=== PATIENT | male | born 1960 | race Two or more races ===

== ENCOUNTER 2019-07-29 22:06 | Emergency (ER) | payer MEDICAID ==
[~2019-07-29] VITALS: Ht 172.7 cm; Wt 72.6 kg
[2019-07-30] MEDS ORDERED: NAPROXEN 500 MG TAB PO ONE (00:15)
[2019-07-30] MEDS ORDERED: HYDROcodone-ACET 5/325MG TAB PO ONE (00:15)
[2019-07-30 00:56] VITALS: BP 143/98
== END 2019-07-30 02:57 | disposition home or self-care (01) ==
LOC: ER 22:07
DX: M13.842 Other specified arthritis, left hand (principal); M13.841 Other specified arthritis, right hand; M79.662 Pain in left lower leg; M79.661 Pain in right lower leg